=== PATIENT | female | born 1980 | race Caucasian/White ===

== ENCOUNTER 2019-01-02 10:29 | Emergency (ER) | payer BC ==
[~2019-01-02] VITALS: Ht 172.7 cm; Wt 80.5 kg
[~2019-01-02 10:29] MED LIST: THY60T PO
[2019-01-02 10:51] VITALS: BP 147/89
== END 2019-01-02 12:12 | disposition home or self-care (01) ==
LOC: ER 10:30
DX: K08.89 Other specified disorders of teeth and supporting structures (principal); R22.0 Localized swelling, mass and lump, head; I10 Essential (primary) hypertension; Z88.0 Allergy status to penicillin; Z88.5 Allergy status to narcotic agent; Z79.899 Other long term (current) drug therapy
CPT/HCPCS: 99281

== ENCOUNTER 2022-02-04 17:55 | Emergency (ER) | payer BC ==
[~2022-02-04] VITALS: Ht 172.7 cm; Wt 75.9 kg
[2022-02-04] MEDS ORDERED: ketorolac trometh. 30mg/ml inj. IM ONE (20:25)
[2022-02-04] MEDS ORDERED: LORazepam 0.5 MG tablet PO PRN (20:25)
[2022-02-04 22:02] LABS: BASOPHILS # (AUTO) 0.1 X10'3 (0-0.2); BASOPHILS % (AUTO) 1.1 % (0-1); EOSINOPHILS % (AUTO) 0.2 % (0-6); HEMATOCRIT 41.2 % (35.0-45.0); HEMOGLOBIN 14.1 g/dl (12.0-16.0); LYMPHOCYTES # (AUTO) 2.4 X10'3 (1.1-4.8); MEAN CORPUSCULAR HEMOGLOBIN 31.5 PG (27.0-31.0); MEAN CORPUSCULAR HGB CONC 34.2 g/dL (33.0-36.5); MEAN CORPUSCULAR VOLUME 91.9 FL (78-98); MEAN PLATELET VOLUME 8.1 FL (7.4-10.4); MONOCYTES # (AUTO) 0.4 X10'3 (0-0.9); MONOCYTES % (AUTO) 4.1 % (2-12); NEUTROPHILS # (AUTO) 6.4 X10'3 (1.8-7.7); NEUTROPHILS % (AUTO) 68.6 % (42-75); PLATELET COUNT 318 X10'3 (140-440); RED BLOOD COUNT 4.48 X10'6 (4.20-5.60); RED CELL DISTRIBUTION WIDTH 12.9 % (11.5-14.5); WHITE BLOOD COUNT 9.3 X10'3 (4.5-11.0)
[2022-02-04 22:09] LABS: ALANINE AMINOTRANSFERASE 59 U/L (12-78); ALBUMIN 3.6 G/DL (3.4-5.0); ALBUMIN/GLOBULIN RATIO 1.1 (1.1-1.5); ALKALINE PHOSPHATASE 46 IU/L (46-116); ANION GAP 11 (8-16); ASPARTATE AMINO TRANSFERASE 42 U/L (10-37); BLOOD UREA NITROGEN 20 MG/DL (7-18); BUN/CREATININE RATIO 21.1 (6.6-38.0); CALCIUM 8.8 MG/DL (8.5-10.1); CHLORIDE 106 MMOL/L (99-107); CREATININE 0.95 MG/DL (0.40-0.90); GLUCOSE 103 MG/DL (70-104); POTASSIUM 3.4 MMOL/L (3.5-5.1); SODIUM 144 MMOL/L (135-145); TOTAL CARBON DIOXIDE 27.3 MMOL/L (24-32); TOTAL PROTEIN 6.9 G/DL (6.4-8.2); eGFR 65 ML/MIN
[2022-02-04 22:20] VITALS: BP 129/68
== END 2022-02-04 22:49 | disposition home or self-care (01) ==
LOC: ER 17:56
DX: F41.9 Anxiety disorder, unspecified (principal); I10 Essential (primary) hypertension; Z88.0 Allergy status to penicillin; Z88.5 Allergy status to narcotic agent; Z79.899 Other long term (current) drug therapy; Z88.1 Allergy status to other antibiotic agents
CPT/HCPCS: 36415; 71045; 80053; 84484; 85025; 93005; 96372; 99285; J1885

== ENCOUNTER 2023-03-15 14:22 | Emergency (ER) | payer BC ==
[~2023-03-15] VITALS: Ht 172.7 cm; Wt 76.4 kg
[2023-03-15 14:30] VITALS: BP 152/94; PULSE 99; RESP 18; TEMP 97.8; O2SAT 98
== END 2023-03-15 19:01 | disposition left against medical advice (07) ==
LOC: ER 14:22
DX: M79.674 Pain in right toe(s) (principal); Z53.21 Procedure and treatment not carried out due to patient leaving prior to being seen by health care provider
CPT/HCPCS: 99281

== ENCOUNTER 2024-03-05 16:49 | Inpatient (IN) | payer BC ==
[~2024-03-05] VITALS: Ht 172.7 cm; Wt 74.1 kg
[2024-03-05 18:30] LABS: BASOPHILS # (AUTO) 0.1 X10'3 (0-0.2); BASOPHILS % (AUTO) 0.7 % (0-1); EOSINOPHILS # (AUTO) 0.4 X10'3 (0-0.9); HEMATOCRIT 44.4 % (35.0-45.0); HEMOGLOBIN 14.8 g/dl (12.0-16.0); LYMPHOCYTES # (AUTO) 1.6 X10'3 (1.1-4.8); LYMPHOCYTES % (AUTO) 17.4 % (21-51); MEAN CORPUSCULAR HEMOGLOBIN 30.3 PG (27.0-31.0); MEAN CORPUSCULAR HGB CONC 33.4 g/dL (33.0-36.5); MEAN CORPUSCULAR VOLUME 90.8 FL (78-98); MEAN PLATELET VOLUME 8.5 FL (7.4-10.4); MONOCYTES # (AUTO) 0.6 X10'3 (0-0.9); MONOCYTES % (AUTO) 6.5 % (2-12); NEUTROPHILS # (AUTO) 6.3 X10'3 (1.8-7.7); NEUTROPHILS % (AUTO) 70.4 % (42-75); PLATELET COUNT 309 X10'3 (140-440); RED BLOOD COUNT 4.89 X10'6 (4.20-5.60); RED CELL DISTRIBUTION WIDTH 12.6 % (11.5-14.5); WHITE BLOOD COUNT 8.9 X10'3 (4.5-11.0)
[2024-03-05] MEDS: CefTRIAXone 2gm/D5W 50ml BAG 50 ML IV ONE (18:40)
[2024-03-05] MEDS: normal saline 1000ml 1,000 ML IV ONE (18:40)
[2024-03-05] MEDS: LIDOcaine 1% 30ml preserv. free vial IJ ONE (18:40)
[2024-03-05 18:59] LABS: ALBUMIN 3.6 G/DL (3.4-5.0); ANION GAP 8 (8-16); BLOOD UREA NITROGEN 15 MG/DL (7-18); CALCIUM 9.1 MG/DL (8.5-10.1); CHLORIDE 103 MMOL/L (99-107); CREATININE 0.94 MG/DL (0.40-0.90); GLUCOSE 120 MG/DL (70-104); MAGNESIUM 1.8 MG/DL (1.5-2.4); SODIUM 140 MMOL/L (135-145); TOTAL CARBON DIOXIDE 29.2 MMOL/L (24-32); eCRCL 77 ML/MIN; eGFR 65 ML/MIN
[2024-03-05 19:03] LABS: BETA HCG,QUANTITATIVE < 1.0 mIU/ml
[2024-03-05 19:11] LABS: GLUCOSE,CSF 75 MG/DL (40-75); TOTAL PROTEIN,CSF 70 MG/DL (15-45)
[2024-03-05] MEDS: potassium Cl 20 mEq SR tablet PO STA (19:28)
[2024-03-05 19:57] LABS: APPEARANCE,CSF CLEAR
[2024-03-05 19:58] LABS: CSF SUPERNATANT COLOR COLORLESS; CSF VOLUME 4 ML; TUBE# COUNTED 1
[2024-03-05 20:02] LABS: CSF WBC CT 2 /CU MM (0-5)
[2024-03-05 20:03] LABS: APPEARANCE,CSF CLEAR; CSF RBC 11 /CU MM (0); CSF SUPERNATANT COLOR COLORLESS; CSF VOLUME 4 ML
[2024-03-05 20:04] LABS: CSF RBC 8 /CU MM (0); CSF WBC CT 3 /CU MM (0-5); TUBE# COUNTED 4
[2024-03-05] MEDS: ketorolac trometh 15mg/ml vial 15 MG/ML ML IV ONE (20:37)
[2024-03-05] MEDS ORDERED: magnesium hydroxide 30ml (MOM) UD suspension PO PRN (21:00)
[2024-03-05] MEDS ORDERED: mag hydrox/Alum hydrox/simeth 30ml oral suspension PO PRN (21:00)
[2024-03-05] MEDS ORDERED: ondansetron/PF 4mg/2ml inj IV PRN (21:00)
[2024-03-05] MEDS ORDERED: acetaminophen 325mg tablet PO PRN (21:00)
[2024-03-05] MEDS ORDERED: magnesium sulf-water 2g/50mL 50 ML IV PRN (21:00)
[2024-03-05] MEDS ORDERED: morphine 2 MG/ML inj. syringe IV PRN (21:00)
[2024-03-05] MEDS ORDERED: potassium Cl 40MEQ/1/2NS 520ml 520 ML IV PRN (21:00)
[2024-03-05] MEDS ORDERED: magnesium sulf-water 4G/100mL 100 ML IV PRN (21:00)
[2024-03-05] MEDS ORDERED: magnesium Cl slow-release 64mg tablet PO PRN (21:00)
[2024-03-05] MEDS ORDERED: potassium Cl 20 mEq SR tablet PO PRN (21:00)
[2024-03-05 21:20] LABS: PHOSPHORUS 3.1 MG/DL (2.3-4.5)
[2024-03-05] MEDS: normal saline 1000ml 1,000 ML IV SCH (22:22)
[2024-03-05 22:41] LABS: BILIRUBIN,URINE NEGATIVE (Neg); CLARITY,URINE CLEAR (Clear); COLOR,URINE YELLOW (Yellow); GLUCOSE, URINE NEGATIVE (Neg); KETONES,URINE NEGATIVE (Neg); LEUKOCYTE ESTERASE ,URINE NEGATIVE (Neg); NITRITES, URINE NEGATIVE (Neg); OCCULT BLOOD,URINE NEGATIVE (Neg); PROTEIN,URINE NEGATIVE (Neg); URINE HCG NEGATIVE (NEG); UROBILINOGEN,URINE 0.2 E.U/dL (0.2-1.0)
[2024-03-05] MEDS ORDERED: BUPR-561 PO (22:44)
[2024-03-05] MEDS ORDERED: HYDR-3964 PO (22:44)
[2024-03-05] MEDS ORDERED: ALBU8HFA (22:44)
[2024-03-05] MEDS ORDERED: HYDR25TA4 PO (22:44)
[2024-03-05] MEDS ORDERED: VALA500T41 PO (22:44)
[2024-03-05] MEDS ORDERED: DOXY-224 PO (22:44)
[2024-03-05 22:46] LABS: UA COLLECTION TYPE CLN CATCH MIDSTREAM
[2024-03-05 23:10] VITALS: BP 124/77; PULSE 73; RESP 16; TEMP 98.6; O2SAT 99
[2024-03-05] MEDS: potassium Cl 20 mEq SR tablet PO PRN (23:54)
[2024-03-06 06:00] VITALS: BP 112/72; PULSE 63; RESP 16; TEMP 98; O2SAT 96
[2024-03-06 07:18] LABS: BASOPHILS % (AUTO) 0.8 % (0-1); EOSINOPHILS # (AUTO) 0.4 X10'3 (0-0.9); EOSINOPHILS % (AUTO) 6.6 % (0-6); HEMATOCRIT 39.3 % (35.0-45.0); HEMOGLOBIN 13.3 g/dl (12.0-16.0); LYMPHOCYTES # (AUTO) 1.9 X10'3 (1.1-4.8); LYMPHOCYTES % (AUTO) 28.9 % (21-51); MEAN CORPUSCULAR HEMOGLOBIN 30.8 PG (27.0-31.0); MEAN CORPUSCULAR HGB CONC 33.7 g/dL (33.0-36.5); MEAN CORPUSCULAR VOLUME 91.4 FL (78-98); MEAN PLATELET VOLUME 8.4 FL (7.4-10.4); MONOCYTES # (AUTO) 0.5 X10'3 (0-0.9); MONOCYTES % (AUTO) 7.7 % (2-12); NEUTROPHILS # (AUTO) 3.7 X10'3 (1.8-7.7); PLATELET COUNT 293 X10'3 (140-440); WHITE BLOOD COUNT 6.5 X10'3 (4.5-11.0)
[2024-03-06] MEDS: ACYCLOVIR IV SCH (07:22)
[2024-03-06] MEDS: NORMAL SALINE IV SCH (07:22)
[2024-03-06] MEDS: morphine 2 MG/ML inj. syringe IV PRN (07:29)
[2024-03-06 07:42] LABS: ALBUMIN 2.8 G/DL (3.4-5.0); ANION GAP 8 (8-16); BLOOD UREA NITROGEN 15 MG/DL (7-18); CHLORIDE 112 MMOL/L (99-107); CREATININE 0.88 MG/DL (0.40-0.90); GLUCOSE 95 MG/DL (70-104); POTASSIUM 3.7 MMOL/L (3.5-5.1); SODIUM 145 MMOL/L (135-145); TOTAL CARBON DIOXIDE 25.5 MMOL/L (24-32); eCRCL 82 ML/MIN; eGFR 70 ML/MIN
[2024-03-06] MEDS: K and/or MAG REPLACEMENT MC SCH (08:00)
[2024-03-06 10:00] VITALS: BP 114/77; PULSE 78; RESP 16; TEMP 98.2; O2SAT 96
[2024-03-06] MEDS: ibuprofen 200mg tablet PO PRN (11:28)
[2024-03-06] MEDS: normal saline 1000ml 1,000 ML IV ONE (11:41)
[2024-03-06 17:00] VITALS: BP 122/77; PULSE 74; RESP 14; TEMP 97.9; O2SAT 98
[2024-03-06] MEDS: azithromycin 250mg tablet PO SCH (17:30)
[2024-03-06] MEDS: CefTRIAXone 2gm/D5W 50ml BAG 50 ML IV SCH (21:56)
[2024-03-06 22:00] VITALS: BP 116/59; PULSE 78; RESP 18; TEMP 98.2; O2SAT 98
[2024-03-07] MEDS: normal saline 1000ml 1,000 ML IV SCH (04:18)
[2024-03-07 06:48] VITALS: BP 133/86; PULSE 69; RESP 17; TEMP 98; O2SAT 97
[2024-03-07 07:04] LABS: BASOPHILS # (AUTO) 0.1 X10'3 (0-0.2); BASOPHILS % (AUTO) 1.4 % (0-1); EOSINOPHILS # (AUTO) 0.6 X10'3 (0-0.9); EOSINOPHILS % (AUTO) 9.1 % (0-6); HEMATOCRIT 36.5 % (35.0-45.0); HEMOGLOBIN 12.4 g/dl (12.0-16.0); LYMPHOCYTES # (AUTO) 2.2 X10'3 (1.1-4.8); LYMPHOCYTES % (AUTO) 33.6 % (21-51); MEAN CORPUSCULAR HEMOGLOBIN 31.2 PG (27.0-31.0); MEAN CORPUSCULAR HGB CONC 34.1 g/dL (33.0-36.5); MEAN CORPUSCULAR VOLUME 91.6 FL (78-98); MEAN PLATELET VOLUME 8.5 FL (7.4-10.4); MONOCYTES # (AUTO) 0.4 X10'3 (0-0.9); MONOCYTES % (AUTO) 6.9 % (2-12); NEUTROPHILS # (AUTO) 3.1 X10'3 (1.8-7.7); PLATELET COUNT 258 X10'3 (140-440); RED BLOOD COUNT 3.98 X10'6 (4.20-5.60); RED CELL DISTRIBUTION WIDTH 12.9 % (11.5-14.5); WHITE BLOOD COUNT 6.4 X10'3 (4.5-11.0)
[2024-03-07 07:07] LABS: ALBUMIN 2.5 G/DL (3.4-5.0); ANION GAP 6 (8-16); BLOOD UREA NITROGEN 15 MG/DL (7-18); BUN/CREATININE RATIO 22.7 (10.0-20.0); CALCIUM 8.2 MG/DL (8.5-10.1); CHLORIDE 117 MMOL/L (99-107); CREATININE 0.66 MG/DL (0.40-0.90); GLUCOSE 121 MG/DL (70-104); POTASSIUM 3.7 MMOL/L (3.5-5.1); SODIUM 146 MMOL/L (135-145); TOTAL CARBON DIOXIDE 23.2 MMOL/L (24-32); eCRCL 110 ML/MIN; eGFR > 90 ML/MIN
[2024-03-07 08:00] VITALS: RESP 17; O2SAT 94
[2024-03-07] MEDS: BUPROPION HCL 150MG XL 24 HR 150 MG TAB PO SCH (08:12)
[2024-03-07] MEDS: HYDROchlorothiazide 25mg tablet PO SCH (08:12)
[2024-03-07 10:00] VITALS: BP 132/83; PULSE 66; RESP 14; TEMP 97.2; O2SAT 98
[2024-03-07] MEDS ORDERED: AZI25OT PO (11:58)
[2024-03-07] MEDS ORDERED: CEFD300C3 PO (11:58)
[2024-03-07] MEDS ORDERED: ALBU8HFA (11:58)
[2024-03-07] MEDS ORDERED: LACT1CAP26 PO (11:58)
[2024-03-08 13:32] LABS: Cryptococcus neoformans/gattii Not Detected (Not Detected); Enterovirus Not Detected (Not Detected); Escherichia coli K1 Not Detected (Not Detected); Haemophilus influenzae Not Detected (Not Detected); Herpes simplex virus 1 Not Detected (Not Detected); Herpes simplex virus 2 Not Detected (Not Detected); Human herpesvirus 6 Not Detected (Not Detected); Human parechovirus Not Detected (Not Detected); Listeria monocytogenes Not Detected (Not Detected); N meningitidis (encapsulated) Not Detected (Not Detected); Streptococcus agalactiae Not Detected (Not Detected); Streptococcus pneumoniae Not Detected (Not Detected); Varicella zoster virus Not Detected (Not Detected)
== END 2024-03-07 14:15 | disposition home or self-care (01) | DRG 866 ==
LOC: ER 16:50 → ED HOLD 21:01 → EDBEDREQ 22:33 → ORTHO 4S 23:08
PROVIDERS: ADMIT Internal Medicine Pulmonary Disease; ATTEND Family Medicine
PROC: 009U3ZZ Drainage of Spinal Canal, Percutaneous Approach (ICD-10-PCS; principal; 2024-03-05)
DX: B33.8 Other specified viral diseases (principal); E87.6 Hypokalemia; I10 Essential (primary) hypertension; Z20.822 Contact with and (suspected) exposure to COVID-19; J32.8 Other chronic sinusitis; Z88.8 Allergy status to other drugs, medicaments and biological substances; Z88.5 Allergy status to narcotic agent; Z88.1 Allergy status to other antibiotic agents; Z88.0 Allergy status to penicillin
CPT/HCPCS: 36415; 70450; 70551; 71045; 80048; 81003; 81025; 82945; 83605; 83735; 84100; 84145; 84157; 84702; 85025; 87015; 87040; 87070; 87081; 87483; 87502; 87503; 87811; 89051; 99291; G0378; J0133; J0696; J1885; J2270; J7030; J7050

== ENCOUNTER 2024-08-02 10:46 | Emergency (ER) | payer BC ==
[~2024-08-02] VITALS: Ht 172.7 cm; Wt 69.9 kg
[~2024-08-02 10:46] MED LIST changes: +ALBU8HFA; +AZI25OT PO; +BUPR-561 PO; +CEFD300C3 PO; +HYDR-3964 PO; +HYDR25TA4 PO; +LACT1CAP26 PO; -THY60T PO; +VALA500T41 PO
[2024-08-02 11:00] VITALS: TEMP 98.3
[2024-08-02] MEDS: acetaminophen 325mg tablet PO ONE (12:38)
[2024-08-02] MEDS: ketorolac trometh 15mg/ml vial 15 MG/ML ML IM ONE (12:42)
[2024-08-02 12:46] VITALS: BP 153/93; PULSE 74; RESP 14; O2SAT 98
[2024-08-02 13:00] LABS: BASOPHILS % (AUTO) 0.2 % (0-1); EOSINOPHILS # (AUTO) 0.4 X10'3 (0-0.9); EOSINOPHILS % (AUTO) 5.6 % (0-6); HEMATOCRIT 44.1 % (35.0-45.0); LYMPHOCYTES # (AUTO) 2.4 X10'3 (1.1-4.8); LYMPHOCYTES % (AUTO) 30.4 % (21-51); MEAN CORPUSCULAR HEMOGLOBIN 30.5 PG (27.0-31.0); MEAN CORPUSCULAR HGB CONC 34.1 g/dL (33.0-36.5); MEAN CORPUSCULAR VOLUME 89.5 FL (78-98); MEAN PLATELET VOLUME 8.6 FL (7.4-10.4); MONOCYTES # (AUTO) 0.5 X10'3 (0-0.9); MONOCYTES % (AUTO) 6.2 % (2-12); NEUTROPHILS # (AUTO) 4.5 X10'3 (1.8-7.7); NEUTROPHILS % (AUTO) 57.6 % (42-75); PLATELET COUNT 344 X10'3 (140-440); RED BLOOD COUNT 4.92 X10'6 (4.20-5.60); RED CELL DISTRIBUTION WIDTH 13.2 % (11.5-14.5); WHITE BLOOD COUNT 7.8 X10'3 (4.5-11.0)
[2024-08-02 13:11] LABS: ALBUMIN 3.8 G/DL (3.4-5.0); ANION GAP 9 (8-16); BLOOD UREA NITROGEN 12 MG/DL (7-18); C-REACTIVE PROTEIN 0.28 MG/DL (0.0-0.5); CALCIUM 8.9 MG/DL (8.5-10.1); CHLORIDE 103 MMOL/L (99-107); GLUCOSE 120 MG/DL (70-104); POTASSIUM 3.1 MMOL/L (3.5-5.1); SODIUM 137 MMOL/L (135-145); TOTAL CARBON DIOXIDE 25.2 MMOL/L (24-32); eCRCL 72 ML/MIN; eGFR 60 ML/MIN
[2024-08-02] MEDS ORDERED: HYDR-3965 PO (13:57)
[2024-08-02] MEDS ORDERED: DOXY-243 PO (14:00)
[2024-08-02] MEDS: potassium bicarbonate/cit acid 25mEq tablet.effervescent PO ONE (14:08)
== END 2024-08-02 15:46 | disposition home or self-care (01) ==
LOC: ER 10:47
DX: G89.18 Other acute postprocedural pain (principal); R68.84 Jaw pain; I10 Essential (primary) hypertension; Z88.5 Allergy status to narcotic agent; Z88.0 Allergy status to penicillin; Z88.1 Allergy status to other antibiotic agents; Z79.899 Other long term (current) drug therapy
CPT/HCPCS: 36415; 70110; 80048; 84145; 85025; 86140; 96372; 99284; J1885